=== PATIENT | male | born 1985 | race Caucasian/White ===

== ENCOUNTER 2021-02-28 02:25 | Day surgery (SDC) | payer OTHER, SELFPAY ==
[2021-02-16 10:25] VITALS: BMI 38.5
--- NOTE | 2021-02-28 10:30 | WPDANESEPPF ---
Anes - Initial Pre Proc Eval Procedure: Operation Date: 02/28/21 11:45 Proposed Procedures p Esophagogastroduodenoscopy - Colt Benjamin MD Date/Time: 02/28/21 10:30 Surgeon: Colt Benjamin MD Pre Op Diagnosis: GERD K21.9 Patient Data Age: 35 Gender: M Height: 1.78 m Weight: 122 kg Allergies Allergy/AdvReac Type Severity Reaction Status Date / Time No Known Allergies Allergy Unverified 02/28/21 10:31 Home Medications Medication Instructions Recorded Confirmed Type albuterol sulfate 90 mcg/actuation 2 inh INHALATION Q4H PRN #6.7 gm 07/25/20 02/28/21 Rx aerosol inhaler amlodipine 5 mg tablet 5 mg PO DAILY #90 tablet 12/27/20 02/28/21 Rx nortriptyline 10 mg capsule 10 mg PO DAILY #90 cap 12/27/20 02/28/21 Rx fexofenadine-pseudoephedrine 1 tablet PO DAILY PRN 02/16/21 02/28/21 History [Rebecca-D 24 Hour] fluticasone propionate [Flonase 1 spray INTRANASAL DAILY PRN 02/16/21 02/28/21 History Allergy Relief] Patient hx anesthesia problems: none Family hx anesthesia problems: none PMFSH Past Medical History Medical History (Updated 02/24/21 @ 12:37 by Leonel Ceballos DO) Anxiety Asthma GERD (gastroesophageal reflux disease) UJSTUS (obstructive sleep apnea) BiPap Surgical History Surgical History (Updated 02/24/21 @ 12:37 by Leonel Ceballos DO) History of hip replacement, total right Family History Family History (Updated 02/18/14 @ 07:13 by DOCTOR UNKNOWN) Father Family history of elevated blood lipids Social History Social History (Updated 01/30/21 @ 11:08 by Lorin Cohen MA) Smoking status: Never smoker Alcohol intake: current Drinks per week: 2 Alcohol use details: social Substance use: current Substance use type: marijuana Other substance usage details: 1-2 TIMES A WEEK Last use: 2 days ago - sleeping Living arrangements: with family Spiritual care concerns: No Anes - Eval Final PreProcedure Day of Procedure 09/07/21 10:30 Patient weight: obese Heart: regular rate and rhythm Lungs: clear to auscultation and normal air movement Airway: Mallampati scale class II Neurological: alert and oriented Last oral intake: >/= 8 hours ASA classification: III Emergent: no Anesthetic plan: proceed Anesthesia type and monitoring: general GIVS and standard monitoring Informed Consent: The patient's anesthetic plan and its attendant risks and benefits were discussed with the patient/family/POA. Questions were solicited and answers provided to the satisfaction of the patient/family/POA.
[2021-02-28 10:32] VITALS: BP 151/92; PULSE 82; RESP 20; TEMP 36.3; O2SAT 96
[2021-02-28] MEDS: LACTATED RINGERS 1,000 ML 150 ML IV CONT (10:34)
--- NOTE | 2021-02-28 11:14 | PM.HPGS ---
History of Present Illness History of Present Illness Consent: Risks, benefits, and alternatives have been discussed and questions answered. Patient agrees to proceed with procedure. Chief complaint: GERD K21.9 Narrative: Burton Carl is a 35 year old male with gerd using nexium and also problems with belching- patient wonders if could have CP dyskinesia Review of Systems Constitutional: Constitutional: Denies headache(s) and Denies weakness Eyes: Eyes: Denies blurry vision ENT: Reports Normal hearing present, Denies headache(s) and Denies neck pain Cardiovascular: Cardiovascular: Denies chest pain and Denies dyspnea Respiratory: Respiratory: Denies dyspnea Gastrointestinal: Gastrointestinal: Reports no additional gastrointestinal complaints Genitourinary: Genitourinary: Denies dysuria Musculoskeletal: Musculoskeletal: Denies neck pain Integumentary/Breasts: Skin/Breast: Denies dry skin Neurologic: Reports Normal hearing present, Denies headache(s) and Denies weakness Psychiatric: Psychiatric: Denies anxiety Endocrine: Endocrine: Denies change in body appearance Hematologic/Lymphatic: Hematologic/Lymphatic: Denies easy bleeding Allergic/Immunologic: Allergic/Immunologic: Denies urticaria [facility] Past Medical History Medical History (Updated 02/28/21 @ 11:15 by Colt Benjamin MD) Anxiety Asthma GERD (gastroesophageal reflux disease) JUSTUS (obstructive sleep apnea) BiPap Surgical History Surgical History (Updated 02/24/21 @ 12:37 by Leonel Ceballos DO) History of hip replacement, total right Family History Family History (Updated 02/18/14 @ 07:13 by DOCTOR UNKNOWN) Father Family history of elevated blood lipids Social History Social History (Updated 01/30/21 @ 11:08 by Lorin Cohen MA) Smoking status: Never smoker Alcohol intake: current Drinks per week: 2 Alcohol use details: social Substance use: current Substance use type: marijuana Other substance usage details: 1-2 TIMES A WEEK Last use: 2 days ago - sleeping Living arrangements: with family Spiritual care concerns: No Meds Home Medications and Allergies Home Medications Medication Instructions Recorded Confirmed Type albuterol sulfate 90 mcg/actuation 2 inh INHALATION Q4H PRN #6.7 gm 07/25/20 02/28/21 Rx aerosol inhaler amlodipine 5 mg tablet 5 mg PO DAILY #90 tablet 12/27/20 02/28/21 Rx nortriptyline 10 mg capsule 10 mg PO DAILY #90 cap 12/27/20 02/28/21 Rx fexofenadine-pseudoephedrine 1 tablet PO DAILY PRN 02/16/21 02/28/21 History [Rebecca-D 24 Hour] fluticasone propionate [Flonase 1 spray INTRANASAL DAILY PRN 02/16/21 02/28/21 History Allergy Relief] Allergies Allergy/AdvReac Type Severity Reaction Status Date / Time No Known Allergies Allergy Unverified 02/28/21 10:31 Vital Signs Vital Signs - 24 hr 02/28/21 10:32 Temperature 97.4 F L Pulse Rate 82 Respiratory Rate 20 Blood Pressure 151/92 H Pulse Oximetry 96 Exam Const: General: comfortable and no acute distress HENMT: General nose exam: Normal nares present Eyes: General: appearance normal, both eyes and all related structures Neck: Neck: no JVD Resp: Auscultation: clear to auscultation bilaterally Cardio: Rate: regular rate Rhythm: regular rhythm GI: Inspection: non-distended GI Palp: Yes Soft to palpation Skin: General skin exam: normal color Neuro: General: gait normal Speech: normal speech Extrem: General: normal to inspection Psych: Mental Status: mental status grossly normal Assessment and Plan Assessment and plan (1) GERD (gastroesophageal reflux disease): Code(s): K21.9 - Gastro-esophageal reflux disease without esophagitis Status: Inactive Assessment and Plan: egd with bx
[2021-02-28 11:32] VITALS: BP 112/69; PULSE 81; RESP 21; O2SAT 97
[2021-02-28 11:42] VITALS: BP 119/75; PULSE 80; RESP 25; O2SAT 96
[2021-02-28 11:52] VITALS: BP 129/85; PULSE 80; RESP 16; O2SAT 98
== END 2021-02-28 12:03 | disposition home or self-care (01) ==
PROVIDERS: PCP Family Medicine; Visit Provider Internal Medicine Gastroenterology
PROC: 0DJ08ZZ Inspection of Upper Intestinal Tract, Via Natural or Artificial Opening Endoscopic (ICD-10-PCS; CPT 43235; principal; 2021-02-28 11:45)
DX: K21.00 Gastro-esophageal reflux disease with esophagitis, without bleeding (principal); K44.9 Diaphragmatic hernia without obstruction or gangrene; R14.2 Eructation; J45.909 Unspecified asthma, uncomplicated; G47.33 Obstructive sleep apnea (adult) (pediatric); F41.9 Anxiety disorder, unspecified; Z79.51 Long term (current) use of inhaled steroids; F12.90 Cannabis use, unspecified, uncomplicated; E66.9 Obesity, unspecified; Z68.38 Body mass index [BMI] 38.0-38.9, adult
CPT/HCPCS: 43239; 88305; J2704; J7120